=== PATIENT | female | born 1985 | race Hispanic/Latino ===

== ENCOUNTER 2020-09-09 15:20 | Emergency (ER) | payer BC, OTHER ==
[~2020-09-09 15:20] MED LIST: PREN1TAB89 PO
[2020-09-09 15:57] LABS: APPEARANCE,URINE Clear (CLEAR); BILIRUBIN,URINE Negative (NEGATIVE); COLOR,URINE Yellow (YELLOW); GLUCOSE, URINE (UA) Negative (NEGATIVE); KETONES,URINE >=160 mg/dL (NEGATIVE); LEUKOCYTE ESTERASE ,URINE Trace (NEGATIVE); NITRATE,URINE Negative (NEGATIVE); OCCULT BLOOD,URINE Moderate (NEGATIVE); PROTEIN,URINE Negative (NEGATIVE); UROBILINOGEN,URINE 0.2 mg/dL (0.2-1.0)
[2020-09-09 16:01] LABS: HCG,QUAL RESULT NEGATIVE (NEGATIVE)
[2020-09-09 16:03] LABS: BASOPHILS % (AUTO) 0.6 % (0.0-5.0); EOSINOPHILS % (AUTO) 0.5 % (0.0-8.0); LYMPHOCYTES % (AUTO) 22.1 % (21.0-51.0); MEAN CORPUSCULAR HEMOGLOBIN 28.7 pg (27.0-33.0); MEAN CORPUSCULAR HGB CONC 33.1 g/dL (32.0-36.0); MEAN CORPUSCULAR VOLUME 86.7 fL (79-99); MONOCYTES % (AUTO) 7.6 % (3.0-13.0); PLATELET COUNT (AUTO) 323 K/uL (130-400); RED CELL DISTRIBUTION WIDTH 13.1 % (11.0-15.5); WHITE BLOOD COUNT (AUTO) 8.6 K/uL (4.8-10.8)
[2020-09-09 16:15] LABS: BACTERIA,URINE Few /HPF (None Seen); MUCUS,URINE Many LPF (None Seen)
[2020-09-09 16:16] LABS: POTASSIUM 4.4 mmol/L (3.5-5.1)
[2020-09-09 16:22] LABS: ALBUMIN 4.3 g/dL (3.5-5.0); BILIRUBIN,TOTAL 1.3 mg/dL (0.2-1.0); CREATININE 0.5 mg/dL (0.5-1.5); TOTAL PROTEIN, SERUM 7.8 g/dL (6.0-8.3)
== END 2020-09-09 17:59 | disposition home or self-care (01) ==
LOC: EDH 15:20
DX: B33.8 Other specified viral diseases (principal); Z88.0 Allergy status to penicillin
CPT/HCPCS: 36415; 80053; 81001; 81025; 83690; 85025

== ENCOUNTER 2024-07-24 19:35 | Inpatient (IN) | payer BC ==
[2024-07-24] VITALS (18 sets, daily range): BP systolic 100–116; BP diastolic 47–75; PULSE 74–106; RESP 15–20; TEMP 97.3–98.7; O2SAT 100
[~2024-07-24] VITALS: Ht 167.6 cm; Wt 65.8 kg
[~2024-07-24 19:35] MED LIST changes: +OMEP20CA12 PO; -PREN1TAB89 PO
[2024-07-24 19:58] LABS: BASOPHILS # (AUTO) 0.02 K/uL (0.00-0.20); BASOPHILS % (AUTO) 0.3 % (0.0-5.0); EOSINOPHILS # (AUTO) 0.09 K/uL (0.00-0.70); EOSINOPHILS % (AUTO) 1.5 % (0.0-8.0); HEMATOCRIT 32.8 % (36-48); IMMATURE GRANULOCYTE ABSOLUTE 0.01 K/uL (0-1); LYMPHOCYTES # (AUTO) 2.4 K/uL (1.0-4.8); LYMPHOCYTES % (AUTO) 38.1 % (21.0-51.0); MEAN CORPUSCULAR HEMOGLOBIN 27.2 pg (27.0-33.0); MEAN CORPUSCULAR HGB CONC 33.5 g/dL (32.0-36.0); MEAN CORPUSCULAR VOLUME 81.2 fL (79-99); MONOCYTES # (AUTO) 0.8 K/uL (0.1-1.0); MONOCYTES % (AUTO) 13.5 % (3.0-13.0); NEUTROPHILS # (AUTO) 2.9 K/uL (1.8-7.7); NEUTROPHILS % (AUTO) 46.4 % (40.0-77.0); PLATELET COUNT (AUTO) 245 K/uL (130-400); RED BLOOD CELL COUNT(AUTO) 4.04 MIL/uL (4.00-5.50); WHITE BLOOD COUNT (AUTO) 6.2 K/uL (4.8-10.8)
[2024-07-24] MEDS: ONDANSETRON 4MG INJ IVP ONE (19:58)
[2024-07-24] MEDS: morPHINE 2 MG SYG IVP ONE (19:59)
[2024-07-24] MEDS: 0.9%NACL 1000ML 1,000 ML IV ONE (19:59)
[2024-07-24 20:09] LABS: CREATININE 0.9 mg/dL (0.5-1.0); POTASSIUM 3.6 mmol/L (3.5-5.1)
[2024-07-24] MEDS: FENTanyl CITRate PF 50 MCG/1 ML 2ML VIAL IVP ONE (20:52)
[2024-07-24] MEDS ORDERED: NOREPINEPHRIN 4MG/NS 250ML 250 ML IV SCH (21:00)
[2024-07-24] MEDS ORDERED: dexaMETHasone SOD PHOSPHATE 10MG/ML 1ML VIAL ONE (21:08)
[2024-07-24] MEDS ORDERED: LIDOCAINE PF 100MG/5ML (2%) SYRINGE 5ML ONE (21:08)
[2024-07-24] MEDS ORDERED: NEOSTIGMINE METHYLSULFATE 1MG/ML IV ONE (21:09)
[2024-07-24] MEDS ORDERED: MIDAZOLAM HCL 1 MG/ML 2ML VIAL ONE (21:09)
[2024-07-24] MEDS ORDERED: rocuRONium bROMide 10MG/1ML 5ML VL ONE (21:09)
[2024-07-24] MEDS ORDERED: proPOFol 10 MG/ML 20ML VIAL IV ONE (21:09)
[2024-07-24] MEDS ORDERED: ONDANSETRON 4MG INJ ONE (21:09)
[2024-07-24] MEDS ORDERED: SUCCINYLCHOLINE CHLORIDE 20 MG/ML 10 ML VIAL ONE (21:09)
[2024-07-24] MEDS ORDERED: GLYCOPYRROLATE 0.2 MG/ML 5 ML VIAL ONE (21:09)
[2024-07-24] MEDS ORDERED: FENTanyl CITRate PF 50 MCG/1 ML 2ML VIAL ONE ×2 (21:09→21:54)
[2024-07-24] MEDS ORDERED: ketaMINE 50MG/ML SYRINGE 50 MG/ML DISP.SYRIN ONE (21:13)
[2024-07-24] MEDS ORDERED: ALBUMIN (HUMAN) 25% 50 ML IV ONE (21:14)
[2024-07-24] MEDS ORDERED: ALBUMIN (HUMAN) 5% 250 ML IV ONE (21:14)
[2024-07-24] MEDS: ceFAZolin SODIUM 2 GM VIAL IVPB ONE (21:34)
[2024-07-24] MEDS ORDERED: CLINDAMYCIN IVPB 900MG/50ML 50 ML IV ONE (21:35)
[2024-07-24] MEDS ORDERED: ePHEDrine SULFate 50 MG/ML AMPULE ONE (21:40)
[2024-07-24 21:56] LABS: ABG BASE EXCESS -8.8 mmol/L (-2.0-3.0); ABG HCO3 16.3 mmol/L (21.0-28.0); ABG OXYGEN SATURATION 99.3 % (94.0-98.0); ABG PCO2 32 mmHg (32-45); ABG PH 7.328 (7.350-7.450); CARBON MONOXIDE 0.3 % (0.5-1.5); DEVICE COMMENT RR; HHb 0.7; PO2, ARTERIAL BG > 500.0 mmHg (83.0-108.0); VENT MODE, BG OR (ROOM AIR)
[2024-07-24] MEDS ORDERED: SUGAMMADEX SODIUM 200 MG/2 ML VIAL IV ONE (22:22)
[2024-07-24] MEDS: MEPERIDINE-PF 25 MG/ML SYG ONE (22:56)
[2024-07-24] MEDS ORDERED: MEPERIDINE-PF 75 MG/ML SYG IM PRN (23:30)
[2024-07-24] MEDS ORDERED: DiphenhydrAMINE HCL 25 MG CAPSULE PO SCH (23:30)
[2024-07-24] MEDS ORDERED: acetaMINOPHEN 325 MG TAB PO SCH (23:30)
[2024-07-24] MEDS ORDERED: acetaMINOPHEN WITH coDEINE 1 TAB TAB PO PRN (23:30)
[2024-07-24] MEDS ORDERED: PROMETHAZINE HCL 25 MG/ML 1ML AMPULE IM PRN (23:30)
[2024-07-24] MEDS ORDERED: BisaCODYL 10 MG SUPP.RECT RC PRN (23:30)
[2024-07-24] MEDS ORDERED: SIMETHICONE 80 MG TAB.CHEW PO PRN (23:30)
[2024-07-25] MEDS: PROMETHAZINE HCL 25 MG/ML 1ML AMPULE IM PRN (00:35)
[2024-07-25 03:41] VITALS: BP 115/66; PULSE 88; RESP 18; TEMP 98.1
[2024-07-25] MEDS: DEXTROSE 5 %-0.45 % NACL 1,000 ML IV PRN (04:17)
[2024-07-25 06:45] LABS: HEMATOCRIT 29.1 % (36-48); MEAN CORPUSCULAR HEMOGLOBIN 26.8 pg (27.0-33.0); MEAN CORPUSCULAR HGB CONC 32.3 g/dL (32.0-36.0); MEAN CORPUSCULAR VOLUME 82.9 fL (79-99); RED BLOOD CELL COUNT(AUTO) 3.51 MIL/uL (4.00-5.50); RED CELL DISTRIBUTION WIDTH 14.8 % (11.0-15.5); WHITE BLOOD COUNT (AUTO) 9.2 K/uL (4.8-10.8)
[2024-07-25] MEDS: CALDOLOR 800MG+NS 250ML 250 ML IV SCH (06:57)
[2024-07-25 08:00] VITALS: BP 103/60; PULSE 78; RESP 18; TEMP 98.2
[2024-07-25 12:00] VITALS: BP 101/59; PULSE 66; RESP 18; TEMP 98.3
[2024-07-25 16:00] VITALS: BP 102/59; PULSE 64; RESP 18; TEMP 98
[2024-07-25 19:26] VITALS: BP 109/61; PULSE 78; RESP 20; TEMP 99
[2024-07-25] MEDS: IBUPROFEN 600 MG TABLET PO PRN (21:57)
[2024-07-25 23:19] VITALS: BP 106/66; PULSE 76; RESP 20; TEMP 98.9
[2024-07-26 04:03] VITALS: BP 103/58; PULSE 75; RESP 18; TEMP 98
[2024-07-26 08:00] VITALS: BP 99/67; PULSE 79; RESP 20; TEMP 98.2
[2024-07-26] MEDS: doCUSate SODIUM 100 MG CAP PO PRN (09:02)
[2024-07-26] MEDS: IBUPROFEN 600 MG TABLET PO PRN (09:02)
[2024-07-26 11:40] VITALS: BP 111/67; PULSE 64; RESP 20; TEMP 98.2
== END 2024-07-26 12:17 | disposition home or self-care (01) | DRG 817 ==
LOC: EDH 19:35 → WSH 23:37
PROVIDERS: ADMIT Obstetrics & Gynecology; ATTEND Obstetrics & Gynecology
PROC: 30233N1 Transfusion of Nonautologous Red Blood Cells into Peripheral Vein, Percutaneous Approach (ICD-10-PCS; 2024-07-24)
PROC: 10T20ZZ Resection of Products of Conception, Ectopic, Open Approach (ICD-10-PCS; principal; 2024-07-24 21:30)
DX: O00.102 Left tubal pregnancy without intrauterine pregnancy (principal); K66.1 Hemoperitoneum; K21.9 Gastro-esophageal reflux disease without esophagitis; O26.891 Other specified pregnancy related conditions, first trimester; O26.51 Maternal hypotension syndrome, first trimester; Z3A.01 Less than 8 weeks gestation of pregnancy
CPT/HCPCS: 36415; 36430; 36600; 76801; 80048; 82435; 82803; 82947; 83605; 84132; 84295; 84702; 85018; 85025; 85027; 86850; 86900; 86901; 86923; 96375; A4314; A4344; G0378; J0330; J1100; J1741; J2001; J2175; J2250; J2270; J2405; J2550; J2704; J2710; J3010; J3490; J7030; P9016; P9045; P9047; A4510; A4600; A4649; J0690

== ENCOUNTER 2024-10-24 01:53 | Emergency (ER) | payer BC ==
[~2024-10-24] VITALS: Ht 167.6 cm; Wt 68.0 kg
[~2024-10-24 01:53] MED LIST changes: +ACET-2247 PO; +IBUP-2070 PO
--- NOTE | 2024-10-24 02:25 | ERN ---
ED Note History of Present Illness Stated Complaint: ABDOMINAL PAIN Chief Complaint: Abdominal Pain Time Seen by MD: 01:57 Dictation: 38-year-old female who presented to the complaining of severe abdominal pain localized in the lower abdomen, patient reports the pain x1 week, but today pain got worse reason the patient came to the emergency department. She has history of surgical procedure for gastric band, fallopian tube removal due to ectopic . Patient states that she also had a revision of gastric band in light of additional performed on 09/25/2024. States that she has been on pain medication for the last 3 weeks without improvement of her pain. Allergies: Coded Allergies: Penicillins (Unverified Allergy, Intermediate, HIVES, 06/18/16) Home Meds Reported Medications Acetaminophen (Tylenol) 325 Mg Tablet, 1 TAB PO AD PRN for PAIN for 5 Days, #30 TAB 0 Refills 09/22/24 Ibuprofen (Ibuprofen) 600 Mg Tablet, 1 TAB PO AD PRN for PAIN for 10 Days, #30 TAB 0 Refills with food 09/22/24 Omeprazole (Omeprazole) 20 Mg Capsule.dr, 20 MG PO QODAY, CAP 12/05/23 Past Medical History Past Medical History: Endometriosis, GERD Surgical History: Other Surgical History Other: LAP BAND Review of System Dictation NEGATIVE EXCEPT PER HPI Constitutional: Negative for fever,chills, and weight loss Eyes: Negative for injury, pain,redness, and discharge ENT: Negative for injury,pain or swelling Cardiovascular: denies chest pain, palpitations, and edema Respiratory: Negative for shortness of breath, cough, and wheezing, Abdomen/GI: Abdominal pain Back: Negative for injury and pain : Negative for injury, bleeding and discharge MS/Extremity: Negative for injury and deformity Skin: Negative for rash, and discoloration Neuro: Negative for headache, weakness, numbness, tingling, and seizure Psych: Negative for suicide ideation, homicidal ideation, and hallucinations Initial Vital Sign VS Vital Signs Date Time Temp Pulse Resp B/P (MAP) Pulse Ox O2 Delivery O2 Flow Rate FiO2 10/24/24 01:55 97.9 73 16 112/57 100 Room Air 0 10/24/24 02:24 21 Physical Exam Dictation General: awake, alert, NAD Head/Face: Normocephalic, atraumatic Eyes: PERRL, EOMI, vision at baseline ENT: oral cavity clear, TMs clear, no signs of infection Neck: Trachea midline, supple, no nuchal rigidity Cardiovascular: RRR, normal S1/S2, No MRGs, no JVD Respiratory: CTAB, no respiratory distress, No rales or wheezes Abdomen: Patient is softer and very tender in the lower abdomen, left lower quadrant pain Skin: Warm, dry, normal turgor, no rash MS/Extremity: Pulses equal, no cyanosis, neurovascular intact, FROM Neuro: COAx4, GCS 15, strength 5/5, CN 2-12 intact, normal cerebellar exam, normal gait, Psych: Normal behavior, mood, and affect normal Results (Laboratory/Radiology) Laboratory/Radiology Laboratory Tests Test 10/24/24 02:22 10/24/24 05:30 White Blood Count 9.1 K/uL (4.8-10.8) Red Blood Count 4.36 MIL/uL (4.00-5.50) Hemoglobin 11.4 g/dL (12.0-16.0) L Hematocrit 35.0 % (36-48) L Mean Corpuscular Volume 80.3 fL (79-99) Mean Corpuscular Hemoglobin 26.1 pg (27.0-33.0) L Mean Corpuscular Hemoglobin Concent 32.6 g/dL (32.0-36.0) Red Cell Distribution Width 14.0 % (11.0-15.5) Platelet Count 235 K/uL (130-400) Mean Platelet Volume 8.9 fL (7.5-10.5) Nucleated Red Blood Cells 0.0 % (0.0-0.19) Sodium Level 139 mmol/L (136-145) Potassium Level 4.2 mmol/L (3.5-5.1) Chloride Level 100 mmol/L (101-111) L Carbon Dioxide Level 34 mmol/L (21-32) H Blood Urea Nitrogen 20 mg/dL (7-18) H Creatinine 0.8 mg/dL (0.5-1.0) Glomerular Filtration Rate Calc 97 mL/min (>90) Random Glucose 99 mg/dL (70-105) Total Calcium 9.6 mg/dL (8.5-10.1) Serum Test, Qualitative NEGATIVE (NEGATIVE) Urine Color LIGHT-YELLOW (YELLOW) Urine Appearance CLEAR (CLEAR) Urine pH 7.0 (5.0-8.0) Urine Specific [place] 1.024 (1.001-1.031) Urine Protein NEGATIVE mg/dL (NEGATIVE) Urine Glucose (UA) NEGATIVE mg/dL (NEGATIVE) Urine Ketones 10 mg/dL (NEGATIVE) H Urine Occult Blood SMALL (NEGATIVE) H Urine Nitrate NEGATIVE (NEGATIVE) Urine Bilirubin NEGATIVE mg/dL (NEGATIVE) Urine Urobilinogen 0.2 mg/dL (0.2-1.0) Urine Leukocyte Esterase NEGATIVE Kit/uL Urine RBC 11-25 /HPF (0-1) H Urine WBC 0-1 /HPF (0-1) Urine Squamous Epithelial Cells RARE /HPF (0-2) Urine Bacteria None /HPF (None Seen) ED Course ED Course Orders Procedure Category Date Status Time Urinalysis Profile LAB 10/24/24 Complete 01:57 Morphine 4mg Syg PHA 10/24/24 Complete (Morphine 4mg Syg) 02:30 Cbc Without LAB 10/24/24 Complete Differential 02:24 Basic Metabolic Panel LAB 10/24/24 Complete 02:24 Ct Abdomen/Pelvis W/O CT 10/24/24 Resulted Contrast 02:27 Testing, LAB 10/24/24 Complete Serum Hcg 02:38 Diatr PHA 10/24/24 Complete Meglu/Diatrizoate 03:41 Morphine 2mg Syg PHA 10/24/24 Complete (Morphine 2mg Syg) 04:30 Ondansetron 4mg Inj PHA 10/24/24 Complete (Zofran 4mg Inj) 05:00 Us Venous Doppler US 10/24/24 Resulted Bilateral 09:40 Hydromorphone 1 Mg PHA 10/24/24 Complete Inj (Dilaudid 1mg Inj 10:00 Current Medications Medications (Trade) Dose Ordered Sig/Live Route PRN Reason Start Time Stop Time Status Last Admin Dose Admin Diatrizoate Meglum/ Diatrizoate Sod (Gastrografin 66-10 Solution) 30 ml STK-MED ONCE .ROUTE 10/24/24 03:41 10/24/24 03:42 DC Hydromorphone HCl (DiLAUDid 1MG INJ) 1 mg ONCE ONCE IVP 10/24/24 10:00 10/24/24 10:01 DC Morphine Sulfate (morPHINE 2MG SYG) 2 mg ONCE ONCE IVP 10/24/24 04:30 10/24/24 04:31 DC 10/24/24 04:12 Morphine Sulfate (morPHINE 4MG SYG) 4 mg ONCE ONCE IVP 10/24/24 02:30 10/24/24 02:31 DC 10/24/24 02:32 Ondansetron HCl (zoFRAN 4MG INJ) 4 mg ONCE ONCE IVP 10/24/24 05:00 10/24/24 05:01 DC 10/24/24 04:50 Vital Signs Date Time Temp Pulse Resp B/P (MAP) Pulse Ox O2 Delivery O2 Flow Rate FiO2 10/24/24 06:30 78 22 112/47 99 Room Air* 0 21 10/24/24 05:14 80 22 109/59 99 Room Air* 0 21 10/24/24 02:24 97.9 80 22 115/60 100 Room Air* 0 10/24/24 01:55 97.9 73 16 112/57 100 Room Air 0 Medical Decision Making MDM 38-year-old female who presented to the complaining of severe abdominal pain localized in the lower abdomen, patient reports the pain x1 week, but today pain got worse reason the patient came to the emergency department. She has history of surgical procedure for gastric band, fallopian tube removal due to ectopic . Patient states that she also had a revision of gastric band in light of additional performed on 09/25/2024. States that she has been on pain medication for the last 3 weeks without improvement of her pain. Abdominal pain Lap band malfunction Abdominal adhesions Urinary infection Ordered UA, test, CBC CT with oral contrast Ordered pain medication morphine [address] DUNBAR TOOK OVER CARE AT 0700: Vital signs are stable, remained stable in the ER. Labs: No leukocytosis, no anemia. Chemistry panel is unremarkable. is negative. Urinalysis unremarkable. CT scan shows gastric band appropriately oriented. No evidence of obstruction, mucosal erosion, or perforation. Does have some gallstones Without signs of cholecystitis. Otherwise the remainder of the organs are unremarkable. Patient received IV Zofran, IV morphine here in the ER. Low suspicion for any surgical pathology. No signs of SIRS or sepsis. No free air in the abdomen. PO tolerant. Patient can follow up as outpatient. I went to discharge the patient she reports it is still uncomfortable. I went over all the labs with her. I gave her another this pain medicine. She reports that she was also worried that she may have had blood clots, I see no signs of this but we agreed to get an ultrasound to ensure that there are not. I did offer the patient admission pain control, but the patient reports that it was her daughter's birthday so she prefers to go home. I do not see any surgical or life-threatening pathology. This appears safe. We will discharge her with pain control. She reports that she has been trying to follow up with Dr. Hernandez as an outpatient, she was able to see the physician's instructional assistant but has not met with him yet. I recommend that she contact his office this week. She can also return to the emergency department if her symptoms are persistent. DX & DISP Disposition: Discharge Departure Impression: Primary Impression: Post-operative pain Condition: Stable Scripts Hydrocodone/Acetaminophen (Hydrocodon-Acetaminophen 5-325) 5 Mg-325 Mg Tablet 1 TAB PO TID PRN for pain for 5 Days, #15 TAB 0 Refills Prov: VIC DUNBAR DO 10/24/24 Additional Instructions: Your symptoms are consistent with postoperative pain. Your vital signs have been stable here in the ER. Your lab work is unremarkable. The CT scan of your abdomen and pelvis with IV and oral contrast is unremarkable. The band appears to be in place. There is no free air. You may have mild constipation. I recommend he take [id number] MiraLax as needed. Eat a high-fiber diet. Drink plenty of liquids. For pain, I have prescribed [place] tabs. Use as needed. The ultrasound did not show any signs of blood clots. As we discussed, I recommend that you follow up with Dr. Hernandez. Please call his office for an appointment. Please return to the emergency department if you have any concerns. Referrals: MAURIZIO COOK (PCP) PANKAJ SMITH MD Oct 24, 2024 02:25 VIC DUNBAR DO Oct 24, 2024 11:07
[2024-10-24 02:29] LABS: MEAN CORPUSCULAR HEMOGLOBIN 26.1 pg (27.0-33.0); MEAN CORPUSCULAR HGB CONC 32.6 g/dL (32.0-36.0); MEAN CORPUSCULAR VOLUME 80.3 fL (79-99); RED BLOOD CELL COUNT(AUTO) 4.36 MIL/uL (4.00-5.50); WHITE BLOOD COUNT (AUTO) 9.1 K/uL (4.8-10.8)
[2024-10-24] MEDS: morPHINE 4 MG SYG IVP ONE (02:32)
[2024-10-24 02:37] LABS: CREATININE 0.8 mg/dL (0.5-1.0); POTASSIUM 4.2 mmol/L (3.5-5.1)
[2024-10-24] MEDS ORDERED: DIATR MEGLU/DIATRIZOATE SODIUM 30 ML BOTTLE ONE (03:41)
[2024-10-24] MEDS: morPHINE 2 MG SYG IVP ONE (04:12)
[2024-10-24] MEDS: ondanSETRON 4MG INJ IVP ONE (04:50)
[2024-10-24 05:44] LABS: APPEARANCE,URINE CLEAR (CLEAR); BILIRUBIN,URINE NEGATIVE (NEGATIVE); COLOR,URINE LIGHT-YELLOW (YELLOW); GLUCOSE, URINE (UA) NEGATIVE (NEGATIVE); KETONES,URINE 10 mg/dL (NEGATIVE); LEUKOCYTE ESTERASE ,URINE NEGATIVE Leu/uL (NEGATIVE); NITRATE,URINE NEGATIVE (NEGATIVE); OCCULT BLOOD,URINE SMALL (NEGATIVE); PROTEIN,URINE NEGATIVE (NEGATIVE); UROBILINOGEN,URINE 0.2 mg/dL (0.2-1.0)
[2024-10-24 05:48] LABS: ADD UA MICROSCOPIC YES
[2024-10-24 05:53] LABS: MUCUS,URINE RARE LPF (None Seen); SQUAMOUS EPITHELIAL CELL,UR RARE /HPF (0-2); WBC,URINE 0-1 /HPF (0-1)
--- NOTE | 2024-10-24 07:10 | NUR ---
REPORT RECEIVED FROM MAE MALONEY
--- NOTE | 2024-10-24 07:20 | NUR ---
PT INFORMED THAT WE ARE JUST PENDING HER CT REPORT TO DISPOSITION HER
--- NOTE | 2024-10-24 08:00 | NUR ---
EMERITA GILL WAS PROVIDED W/CT REPORT. PENDING DISPOSITOIN
--- NOTE | 2024-10-24 09:26 | HMCIMG ---
CT ABDOMEN/PELVIS W/O CONTRAST REASON: abdominal pain, lap band malfunction COMPARISON: None. TECHNIQUE: Images are obtained from lung bases to the symphysis pubis following oral contrast only. FINDINGS: Lung bases are clear. There are implants in place without evidence of rupture, only partially visualized. There are no focal liver lesions. There are normal-appearing kidneys.. Spleen and pancreas appear unremarkable. There are small stones in an otherwise normal-appearing gallbladder. There is a LAP-BAND in place in the upper portion of the stomach just past the EG junction. Stomach distal to the gastric band is moderately distended with contrast material and food. Small bowel loops appear unremarkable as does the colon. This includes normal appearance of the appendix There is no evidence of free fluid or intraperitoneal air. There are no focal fluid collections. Aorta and retroperitoneum appear normal. There is an IUD in the uterus. Pelvic soft tissues are otherwise unremarkable. The anterior abdominal wall is intact. Osseous structures appear unremarkable. IMPRESSION: 1. Lap band in place the without evidence of complication. 2. Cholelithiasis without evidence of acute cholecystitis. 3. Stomach appears mildly to moderately distended but without evidence of bowel obstruction. CT was performed with one or more following dose reduction techniques: automated exposure control, adjustment of the mA and kv according to patient's size, or use of a iterative reconstruction technique.
--- NOTE | 2024-10-24 09:35 | NUR ---
STILL PENDING DISPOSITION
--- NOTE | 2024-10-24 09:39 | NUR ---
ED MD WAS INFORMED PT C/O SOME RIGHT ARM DISCOMFORT DESPITE NEGATIVE TRAUMA NOR MANIPULATION, HE STATED HE WOULD ORDER A SONO.
[2024-10-24] MEDS ORDERED: hydroMORPHone 1 MG INJ IVP ONE (10:00)
--- NOTE | 2024-10-24 10:49 | NUR ---
SONO CURRENTLY AT BEDSIDE.
--- NOTE | 2024-10-24 10:59 | HMCIMG ---
US VENOUS DOPPLER BILATERAL REASON: dvt r/o COMPARISON: None Technique: Bilateral venous doppler ultrasound was performed with spectral analysis and color flow imaging technique. FINDINGS: There is a normal appearance of the common femoral, deep femoral, the profunda femoris and popliteal veins. Proximal calf veins appear normal as well. There is normal response to compression and augmentation. There is no evidence of deep venous thrombosis. IMPRESSION: Normal bilateral lower extremity venous Doppler ultrasound.
[2024-10-24] MEDS ORDERED: HYDR-4060 PO (11:06)
[2024-10-24 11:48] VITALS: BP 104/53; PULSE 66; RESP 17; TEMP 98.1; O2SAT 99
== END 2024-10-24 11:28 | disposition home or self-care (01) ==
LOC: EDH 01:53
DX: G89.18 Other acute postprocedural pain (principal); M79.605 Pain in left leg; M79.604 Pain in right leg; K21.9 Gastro-esophageal reflux disease without esophagitis; Z88.0 Allergy status to penicillin; Z79.899 Other long term (current) drug therapy; Z98.890 Other specified postprocedural states
CPT/HCPCS: 99285; 74176; 93970; 96374; 96375; 80048; 84703; 85027; 81001; 36415; 96376; Q9963; J2270 ×2; J2405